=== PATIENT | male | born 1975 | race African-American/Black ===

== ENCOUNTER 2018-07-02 13:28 | Inpatient (IN) | payer MEDICAID, OTHER ==
[~2018-07-02] VITALS: Ht 180.3 cm; Wt 224.1 kg
[2018-07-02] MEDS ORDERED: methylPREDNISolone SOD SUCC 125 MG/2 ML VL IV ONE (14:15)
[2018-07-02] MEDS ORDERED: ASPirin 81 mg TAB PO ONE (14:15)
[2018-07-02 14:50] LABS: Basophils # (auto) 0.1 uL; Eosinophils # (auto) 0.3 uL; Monocytes # (auto) 0.9 uL
[2018-07-02 14:52] LABS: Basophils % (auto) 0.6 % (0.0-2.0); Eosinophils % (auto) 2.1 % (0.0-7.0); Hematocrit 39.9 % (41.0-53.0); Hemoglobin 12.9 g/dL (13.5-17.5); Lymphocytes # (auto) 2.5 uL; Mean Corpuscular Hemoglobin 26.1 pg (28.0-32.0); Mean Corpuscular Hgb Conc. 32.2 g/dL (32.0-36.0); Monocytes % (auto) 6.4 % (0.0-12.0); Neutrophils # (auto) 10.1 uL; Neutrophils % (auto) 72.9 % (37.0-80.0); Platelet Count (auto) 245 10^3/uL (140-450); Red Blood Cells 4.93 10^6/uL (4.5-5.90); White Blood Cell 13.8 10^3/uL (4.4-10.8)
[2018-07-02 15:16] LABS: Alanine Aminotransferase 19 U/L (16-61); Albumin 3.5 g/dL (3.4-5.0); Alkaline Phosphatase 107 U/L (45-117); Anion Gap 6 (5-15); Aspartate Aminotransferase 11 U/L (15-37); BUN/Creatinine Ratio 10.9; Bilirubin, Total 0.4 mg/dL (0.2-1.0); Blood Urea Nitrogen 10 mg/dL (7-18); Calcium 8.1 mg/dL (8.5-10.1); Carbon Dioxide 29 mmol/L (21-32); Chloride 106 mmol/L (98-107); GFR African American 115 mL/min; GFR Non-African American 95 mL/min; Glucose 86 mg/dL (74-106); Magnesium 2.5 mg/dL (1.6-2.6); Potassium 3.8 mmol/L (3.5-5.1); Sodium 141 mmol/L (136-145); Total Protein 8.2 g/dL (6.4-8.2)
[2018-07-02] MEDS ORDERED: FUROSEMIDE 40 MG/4 ML VIAL IV ONE (15:45)
[2018-07-02] MEDS: ENALAPRIL MALEATE 2.5 MG TAB PO SCH (16:25)
[2018-07-02] MEDS ORDERED: TEMAZEPAM 15 MG CAP PO PRN (16:30)
[2018-07-02] MEDS ORDERED: ALBUTEROL SULF 2.5 MG/0.5ML(0.5%) NEB SOLN NEB PRN (16:30)
[2018-07-02] MEDS ORDERED: LACTULOSE 20Gm/30ML SOLN PO PRN (16:30)
[2018-07-02] MEDS ORDERED: PROMETHAZINE HCL 25 MG/ML 1ML IV PRN (16:30)
[2018-07-02] MEDS ORDERED: MORPHINE SULF INJ 2 MG/ML SYRINGE 1ML IV PRN (16:30)
[2018-07-02] MEDS ORDERED: LORazepam 0.5 MG TAB PO PRN (16:30)
[2018-07-02] MEDS ORDERED: ACETAMINOPHEN 500 MG TAB PO PRN (16:30)
[2018-07-02] MEDS ORDERED: NITROGLYCERIN 0.4 MG SL TAB SL PRN (16:30)
[2018-07-02] MEDS: CARVEDILOL 3.125 MG TAB PO SCH ×2 (17:20→22:26)
[2018-07-02] MEDS: NITROGLYCERIN 0.2MG/HR TOPICAL PATCH TD SCH (17:24)
[2018-07-02] MEDS: ENOXAPARIN SOD 40 MG/0.4 ML SYRINGE SC SCH (17:25)
[2018-07-02] MEDS ORDERED: FURO40TA PO (17:40)
[2018-07-02] MEDS ORDERED: HYDR-531 PO (17:40)
[2018-07-02] MEDS ORDERED: CARI-277 PO (17:40)
[2018-07-02 17:55] LABS: Urine Bacteria NONE SEEN /hpf (None Seen); Urine Blood Negative /uL (Negative); Urine Mucus FEW (None Seen); Urine WBC 1 /hpf (0 - 3)
[2018-07-02] MEDS: MORPHINE SULF INJ 2 MG/ML SYRINGE 1ML IV PRN (18:25)
[2018-07-02] MEDS: DOXYCYCLINE 100MG/250ML 250 ML IV SCH (18:25)
[2018-07-02] MEDS: IPRATROPIUM BROM 0.5 MG/2.5ML INH SOL NEB SCH (19:32)
[2018-07-02] MEDS: ALBUTEROL SULF 2.5 MG/0.5ML(0.5%) NEB SOLN NEB SCH (19:32)
[2018-07-02 22:00] VITALS: BP 149/77
[2018-07-02] MEDS: ATORVASTATIN 20 MG TAB PO SCH (22:30)
[2018-07-02 23:00] VITALS: BP 149/77
[2018-07-03] VITALS (7 sets, daily range): BP systolic 120–160; BP diastolic 64–93
[2018-07-03] MEDS: IPRATROPIUM BROM 0.5 MG/2.5ML INH SOL NEB SCH ×5 (01:44→23:19)
[2018-07-03] MEDS: ALBUTEROL SULF 2.5 MG/0.5ML(0.5%) NEB SOLN NEB SCH ×5 (01:44→23:19)
[2018-07-03] MEDS: DOXYCYCLINE 100MG/250ML 250 ML IV SCH ×2 (04:37→16:44)
[2018-07-03 05:36] LABS: Basophils # (auto) 0 uL; Basophils % (auto) 0.1 % (0.0-2.0); Eosinophils # (auto) 0 uL; Lymphocytes # (auto) 1.1 uL; Monocytes # (auto) 0.4 uL; Monocytes % (auto) 2.7 % (0.0-12.0)
[2018-07-03 05:38] LABS: Hematocrit 41.6 % (41.0-53.0); Hemoglobin 13.4 g/dL (13.5-17.5); Lymphocytes % (auto) 7.7 % (10.0-50.0); Mean Corpuscular Hgb Conc. 32.3 g/dL (32.0-36.0); Mean Corpuscular Volume 80.8 fL (80.0-100.0); Neutrophils # (auto) 12.7 uL; Neutrophils % (auto) 89.5 % (37.0-80.0); Nucleated Red Blood Cells % 0.1 %; Platelet Count (auto) 268 10^3/uL (140-450); Red Blood Cells 5.15 10^6/uL (4.5-5.90); Red Cell Distribution Width 16.9 % (11.8-14.3); White Blood Cell 14.2 10^3/uL (4.4-10.8)
[2018-07-03 05:59] LABS: Albumin 3.6 g/dL (3.4-5.0); BUN/Creatinine Ratio 14.3; Bilirubin, Total 0.3 mg/dL (0.2-1.0); Calcium 8.8 mg/dL (8.5-10.1); Potassium 4.3 mmol/L (3.5-5.1); Total Protein 8.7 g/dL (6.4-8.2)
[2018-07-03] MEDS: POTASSIUM CHL 20 Meq TABLET PO SCH (09:43)
[2018-07-03] MEDS: PANTOPRAZOLE 40 MG TAB PO SCH (09:43)
[2018-07-03] MEDS: CARVEDILOL 3.125 MG TAB PO SCH ×2 (09:44→22:13)
[2018-07-03] MEDS: ENALAPRIL MALEATE 2.5 MG TAB PO SCH (09:45)
[2018-07-03] MEDS: ASPirin 81 mg TAB PO SCH (09:45)
[2018-07-03] MEDS: FUROSEMIDE 40 MG/4 ML VIAL IV SCH (09:45)
[2018-07-03] MEDS: NITROGLYCERIN 0.2MG/HR TOPICAL PATCH TD SCH (09:46)
[2018-07-03] MEDS: ENOXAPARIN SOD 40 MG/0.4 ML SYRINGE SC SCH (09:46)
[2018-07-03] MEDS: HYDROcodone-ACET 5/325MG TAB PO PRN (09:57)
[2018-07-03] MEDS ORDERED: ENOXAPARIN SOD 40 MG/0.4 ML SYRINGE SC SCH (10:00)
[2018-07-03] MEDS: THROAT LOZENGES(CEPASTAT) MT PRN (16:44)
[2018-07-03] MEDS: ATORVASTATIN 20 MG TAB PO SCH (22:13)
[2018-07-04] MEDS: DOXYCYCLINE 100MG/250ML 250 ML IV SCH ×2 (04:38→16:28)
[2018-07-04] MEDS: HYDROcodone-ACET 5/325MG TAB PO PRN ×2 (04:43→13:42)
[2018-07-04 05:00] VITALS: BP 133/86
[2018-07-04] MEDS: IPRATROPIUM BROM 0.5 MG/2.5ML INH SOL NEB SCH ×3 (07:38→20:00)
[2018-07-04] MEDS: ALBUTEROL SULF 2.5 MG/0.5ML(0.5%) NEB SOLN NEB SCH ×3 (07:38→20:00)
[2018-07-04 09:15] VITALS: BP 122/82
[2018-07-04] MEDS: NITROGLYCERIN 0.2MG/HR TOPICAL PATCH TD SCH (10:00)
[2018-07-04] MEDS: ENALAPRIL MALEATE 2.5 MG TAB PO SCH (10:45)
[2018-07-04] MEDS: ASPirin 81 mg TAB PO SCH (10:46)
[2018-07-04] MEDS: PANTOPRAZOLE 40 MG TAB PO SCH (10:47)
[2018-07-04] MEDS: POTASSIUM CHL 20 Meq TABLET PO SCH (10:47)
[2018-07-04] MEDS: CARVEDILOL 3.125 MG TAB PO SCH ×2 (10:48→21:34)
[2018-07-04] MEDS: ENOXAPARIN SOD 40 MG/0.4 ML SYRINGE SC SCH (10:48)
[2018-07-04] MEDS: FUROSEMIDE 40 MG/4 ML VIAL IV SCH (10:49)
[2018-07-04] MEDS: THROAT LOZENGES(CEPASTAT) MT PRN (10:53)
[2018-07-04 12:35] VITALS: BP 149/73
[2018-07-04 15:55] LABS: Magnesium 2.2 mg/dL (1.6-2.6); Potassium 3.8 mmol/L (3.5-5.1)
[2018-07-04 16:19] VITALS: BP 107/50
[2018-07-04 16:30] LABS: Basophils # (auto) 0 uL; Basophils % (auto) 0.5 % (0.0-2.0); Eosinophils # (auto) 0.3 uL; Eosinophils % (auto) 2.9 % (0.0-7.0); Hematocrit 39.8 % (41.0-53.0); Hemoglobin 12.9 g/dL (13.5-17.5); Lymphocytes # (auto) 2.1 uL; Mean Corpuscular Hemoglobin 26.2 pg (28.0-32.0); Mean Corpuscular Hgb Conc. 32.4 g/dL (32.0-36.0); Mean Corpuscular Volume 80.9 fL (80.0-100.0); Monocytes # (auto) 1.1 uL; Monocytes % (auto) 10.5 % (0.0-12.0); Neutrophils # (auto) 6.5 uL; Neutrophils % (auto) 65.1 % (37.0-80.0); Nucleated Red Blood Cells % 0.1 %; Platelet Count (auto) 220 10^3/uL (140-450); Red Blood Cells 4.91 10^6/uL (4.5-5.90)
[2018-07-04] MEDS: MORPHINE SULF INJ 2 MG/ML SYRINGE 1ML IV PRN (20:23)
[2018-07-04] MEDS: ATORVASTATIN 20 MG TAB PO SCH (21:34)
[2018-07-04 21:45] VITALS: BP 113/59
[2018-07-04] MEDS ORDERED: FUROSEMIDE 40 MG/4 ML VIAL IV ONE (23:30)
[2018-07-05] MEDS: ALBUTEROL SULF 2.5 MG/0.5ML(0.5%) NEB SOLN NEB SCH ×2 (00:48→07:03)
[2018-07-05] MEDS: IPRATROPIUM BROM 0.5 MG/2.5ML INH SOL NEB SCH ×2 (00:48→07:03)
[2018-07-05] MEDS: DOXYCYCLINE 100MG/250ML 250 ML IV SCH (04:12)
[2018-07-05 05:49] VITALS: BP 122/76
[2018-07-05] MEDS ORDERED: FUROSEMIDE 40 MG/4 ML VIAL IV SCH (10:00)
== END 2018-07-05 09:30 | disposition left against medical advice (07) | DRG 194 ==
LOC: ER 13:28 → TELE 13:29 → TELE-EAST 18:16
PROVIDERS: ADMIT Internal Medicine; ATTEND Internal Medicine
PROC: 5A09357 Assistance with Respiratory Ventilation, Less than 24 Consecutive Hours, Continuous Positive Airway Pressure (ICD-10-PCS; principal; 2018-07-02)
PROC: 5A09357 Assistance with Respiratory Ventilation, Less than 24 Consecutive Hours, Continuous Positive Airway Pressure (ICD-10-PCS; 2018-07-03)
PROC: 5A09357 Assistance with Respiratory Ventilation, Less than 24 Consecutive Hours, Continuous Positive Airway Pressure (ICD-10-PCS; 2018-07-05)
DX: I11.0 Hypertensive heart disease with heart failure (principal); E66.01 Morbid (severe) obesity due to excess calories; J44.1 Chronic obstructive pulmonary disease with (acute) exacerbation; E11.9 Type 2 diabetes mellitus without complications; D72.829 Elevated white blood cell count, unspecified; Z79.899 Other long term (current) drug therapy; I50.33 Acute on chronic diastolic (congestive) heart failure; I50.82 Biventricular heart failure; Z82.49 Family history of ischemic heart disease and other diseases of the circulatory system; Z68.44 Body mass index [BMI] 60.0-69.9, adult
CPT/HCPCS: 36415; 71045; 80053; 80061; 81001; 82550; 83735; 83880; 84132; 84443; 84484; 85025; 85379; 85652; 86141; 87070; 87205; 93005; 93306; 93970; 94640; 94660; 94761; 96372; 96374; 96375; J3490

== ENCOUNTER 2018-07-29 11:32 | Emergency (ER) | payer MEDICAID ==
[~2018-07-29] VITALS: Ht 180.3 cm; Wt 222.3 kg
[~2018-07-29 11:32] MED LIST: CARI-277 PO; FURO40TA PO; HYDR-531 PO
[2018-07-29 11:43] VITALS: BP 155/78
== END 2018-07-29 12:25 | disposition home or self-care (01) ==
LOC: ER 11:36
DX: S83.8X1A Sprain of other specified parts of right knee, initial encounter (principal); J44.9 Chronic obstructive pulmonary disease, unspecified; E11.9 Type 2 diabetes mellitus without complications; I11.0 Hypertensive heart disease with heart failure; I50.9 Heart failure, unspecified; W01.0XXA Fall on same level from slipping, tripping and stumbling without subsequent striking against object, initial encounter; Y93.01 Activity, walking, marching and hiking; Y99.8 Other external cause status; Y92.511 Restaurant or cafe as the place of occurrence of the external cause
CPT/HCPCS: 73562

== ENCOUNTER 2018-11-16 21:38 | Emergency (ER) | payer MEDICAID ==
[~2018-11-16] VITALS: Ht 180.3 cm; Wt 217.7 kg
[2018-11-16 22:12] VITALS: BP 159/91
[2018-11-16] MEDS ORDERED: KETOROLAC TROMETH 60MG/2ML VIAL IM ONE (22:45)
[2018-11-16] MEDS ORDERED: methylPREDNISolone SOD SUCC 125 MG/2 ML VL IM ONE (22:45)
== END 2018-11-16 23:17 | disposition home or self-care (01) ==
LOC: ER 21:38
DX: M25.562 Pain in left knee (principal); J44.9 Chronic obstructive pulmonary disease, unspecified; I11.0 Hypertensive heart disease with heart failure; I50.9 Heart failure, unspecified; E11.9 Type 2 diabetes mellitus without complications; Z79.899 Other long term (current) drug therapy
CPT/HCPCS: 96372; 99283; J1885; J2930

== ENCOUNTER 2025-09-02 06:08 | Inpatient (IN) | payer MEDICAID ==
[2025-09-02] VITALS (8 sets, daily range): BP systolic 157–171; BP diastolic 82–96; PULSE 84–103; RESP 18–24; TEMP 97.9–98; O2SAT 92–98
[~2025-09-02] VITALS: Ht 182.9 cm; Wt 245.0 kg
[~2025-09-02 06:08] MED LIST changes: +FURO1TAB31 PO; -FURO40TA PO
--- NOTE | 2025-09-02 08:06 | ED.PDOC ---
SOB-HPI HPI Comments 50 y.o male with PMHx of CHF, HTN and osteoarthritis, presents to the ED for a chief complaint of SOB that started this morning. Patient mentions running out of his Lasix 2 days ago and presents with lower extremity swelling. Upon arrival, blood pressure read 206/102 with a repeat of 184/104 and has a SPO2 of 97% on room air. He denies any chest pain, chills, fever, nausea, vomiting, or pain. Chief Complaint: Shortness of Breath Time Seen by MD: 07:33 Primary Care Provider: GERARDO CHAMBERS Reviewed notes: Nurses Notes, Medications, Allergies Information Source: Patient Mode of Arrival: Ambulatory Severity: Moderate Timing: Hours Duration: Since onset Context: At Rest PE Risk Factors: None History of: CHF Associated Signs and Symptoms: None Past Medical History PAST MEDICAL HISTORY: CHF, COPD, DM, HTN Surgical History: Denies all surgeries Family History Family History: Unknown Social History Smoker: Non-Smoker Alcohol: Occasionally Drugs: Denies Drug Use Lives In: Home Constitutional: denies: chills, diaphoresis, fatigue, fever, malaise, sweats, weakness, others EENTM: denies: blurred vision, double vision, ear bleeding, ear discharge, ear drainage, ear pain, ear ringing, eye pain, eye redness, hearing loss, mouth pain, mouth swelling, nasal discharge, nose bleeding, nose congestion, nose pain, photophobia, tearing, throat pain, throat swelling, voice changes, others Respiratory: reports: SOB at rest, shortness of breath, SOB with excertion; denies: cough, hemoptysis, orthopnea, stridor, wheezing, others Cardiovascular: denies: chest pain, dizzy spells, diaphoresis, Dyspnea on exertion, edema, irregular heart beat, left arm pain, lightheadedness, palpitations, PND, syncope, others Gastrointestinal: denies: abdomen distended, abdominal pain, blood streaked bowels, constipated, diarrhea, dysphagia, difficulty swallowing, hematemesis, melena, nausea, poor appetite, poor fluid intake, rectal bleeding, rectal pain, vomiting, others Genitourinary: denies: burning, dysuria, flank pain, frequency, hematuria, incontinence, penile discharge, penile sore, pain, testicle pain, testicle swelling, urgency, others Neurological: denies: dizziness, fainting, headache, left sided numbness, left sided weakness, numbness, paresthesia, pre-existing deficit, right sided numbness, right sided weakness, seizure, speech problems, tingling, tremors, weakness, others Musculoskeletal: denies: back pain, gout, joint pain, joint swelling, muscle pain, muscle stiffness, neck pain, others Integumetry: denies: bruises, change in color, change in hair/nails, dryness, laceration, lesions, lumps, rash, wounds, others Allergic/Immunocompromised: denies: Difficulty Healing, Frequent Infections, Hives, Itching, others Hematologic/Lymphatic: denies: anemia, blood clots, easy bleeding, easy bruising, swollen glands, others Endocrine: denies: excessive hunger, excessive sweating, excessive thirst, excessive urination, flushing, intolerance to cold, intolerance to heat, u nexplained weight gain, unexplained weight loss, others Psychiatric: denies: anxiety, bipolar disorder, depression, hopeless, panic disorder, schizophrenia, sleepless, suicidal, others All Other Systems: Reviewed and Negative Physical Exam General Appearance: Moderate Distress, Obese HEENT: Normal ENT Inspection, Pharynx Normal, TMs Normal Neck: Full Range of Motion, Non-Tender, Normal, Normal Inspection Respiratory: Chest Non-Tender, Lungs Clear, No Accessory Muscle Use, No Respiratory Distress, Normal Breath Sounds Cardiovascular: No Edema, No JVD, No Murmur, No Gallop, Normal Peripheral Pulse s, Regular Rate/Rhythm Breast Exam: Deferred Gastrointestinal: No Organomegaly, Non Tender, No Pulsatile Mass, Normal Bowel Sounds, Soft Genitalia: Deferred Pelvic: Deferred Rectal: Deferred Extremities: Swelling (Bilateral lower extremity) Musculoskeletal : Apperance: Normal Neurologic: Alert, No Motor Deficits, No Sensory Deficits Cerebellar Function: NOT DONE Reflexes: NOT DONE Skin: Normal Color Peripheral Pulses: 3+ Radial (R), 3+ Radial (L) Lymphatic: No Adenopathy Was a procedure done? Was a procedure done?: No Differential Dx Differential Diagnosis: Anxiety, Asthma, CHF, COPD, Pneumonia, Respiratory Distress, URI X-Ray, Labs, Meds, VS Vital Signs Date Time Temp Pulse Resp B/P (MAP) Pulse Ox O2 Delivery O2 Flow Rate FiO2 09/02/25 08:55 167/82 09/02/25 08:48 20 93 Room Air* 0 21 09/02/25 08:47 98.0 84 22 167/82 (110) 100 98.0 09/02/25 08:47 84 22 98 Room Air* 0 21 09/02/25 06:09 98.0 98 22 184/104 97 98.0 Lab Test 09/02/25 09:14 09/02/25 08:30 09/02/25 08:15 Range/Units Troponin I High Sensitivity 17 16 </=54 ng/L Urine Color Light-yellow Yellow Urine Clarity Clear Clear Urine pH 5.5 5.0-9.0 Urine Specific Gerry 1.003 1.001-1.035 Urine Protein Negative Negative Urine Ketones Negative Negative Urine Blood Negative Negative /uL Urine Nitrite Negative Negative Urine Bilirubin Negative Negative Urine Urobilinogen Normal Negative mg/dL Urine Leukocyte Esterase Negative Negative /uL Urine RBC None seen 0 - 3 /hpf Urine Microscopic WBC 1 0-3 /HPF Urine Squamous Epithelial Cells None seen <5 /hpf Urine Bacteria None seen None Seen /hpf Urine Glucose Normal Normal mg/dL White Blood Count 12.1 H 4.4-10.8 10^3/uL Red Blood Count 5.09 4.5-5.90 10^6/uL Hemoglobin 13.2 L 13.5-17.5 g/dL Hematocrit 41.0 41.0-53.0 % Mean Corpuscular Volume 80.5 80.0-100.0 fL Mean Corpuscular Hemoglobin 26.0 L 28.0-32.0 pg Mean Corpuscular Hemoglobin Concent 32.3 32.0-36.0 g/dL Red Cell Distribution Width 17.2 H 11.8-14.3 % Platelet Count 200 140-450 10^3/uL Mean Platelet Volume 10.2 6.9-10.8 fL Neutrophils (%) (Auto) 75.3 37.0-80.0 % Lymphocytes (%) (Auto) 14.0 10.0-50.0 % Monocytes (%) (Auto) 7.5 0.0-12.0 % Eosinophils (%) (Auto) 2.6 0.0-7.0 % Basophils (%) (Auto) 0.6 0.0-2.0 % Neutrophils # (Auto) 9.1 H 1.6-8.6 10 ^3/uL Lymphocytes # (Auto) 1.7 0.4-5.4 10 ^3/uL Monocytes # (Auto) 0.9 0-1.3 10 ^3/uL Eosinophils # (Auto) 0.3 0-0.8 10 ^3/uL Basophils # (Auto) 0.1 0-0.2 10 ^3/uL Nucleated Red Blood Cells 0.0 % Sodium Level 145 136-145 mmol/L Potassium Level 4.4 3.5-5.1 mmol/L Chloride Level 108 H 98-107 mmol/L Carbon Dioxide Level 29 20-31 mmol/L Anion Gap 8 5-15 Blood Urea Nitrogen 16 9-23 mg/dL Creatinine 1.22 0.700-1.30 mg/dL Glomerular Filtration Rate Calc 72 >90 mL/min BUN/Creatinine Ratio 13.1 10.0-20.0 Serum Glucose 153 H 74-106 mg/dL Calcium Level 8.7 8.7-10.4 mg/dL B-Type Natriuretic Peptide 30.71 0-100 pg/mL Current Medications Medications (Trade) Dose Ordered Sig/Isela Route Start Time Stop Time Status Last Admin Albuterol (Ventolin Medneb) 5 mg ONCE ONCE NEB 09/02/25 08:30 09/02/25 08:31 DC 09/02/25 08:46 Ipratropium [place] (Atrovent Medneb) 0.5 mg ONCE ONCE NEB 09/02/25 08:30 09/02/25 08:31 DC 09/02/25 08:46 Furosemide (Lasix Injection) 40 mg ONCE ONCE IV 09/02/25 08:30 09/02/25 08:31 DC 09/02/25 08:55 Methylprednisolone Sodium Succinate (Solu Medrol) 125 mg ONCE ONCE IV 09/02/25 09:15 09/02/25 09:16 DC 09/02/25 09:30 Piperacillin Sod/ Tazobactam Sod 100 ml @ 100 mls/hr ONCE ONCE IV 09/02/25 09:15 09/02/25 10:14 DC 09/02/25 09:30 Azithromycin 250 ml @ 125 mls/hr ONCE ONCE IV 09/02/25 09:15 09/02/25 11:14 09/02/25 09:[address] [address] Ph: [phone] DIAGNOSTIC IMAGING Diagnostic Imaging Report : [id number] Signed PATIENT: GAETANO MELGAR ACCT: [id number] UNIT: [id number] : 1975 LOC: ER ROOM / BED: / AGE / SEX: 50 / M ADM STATUS: REG ER SERVICE [id number] ORDERING PHYSICIAN: NEREYDA PAYNE MD PROCEDURE(s): CXRP - CHEST PORTABLE REASON: sob ORDER NUMBER(s): [id number], ACCESSION NUMBER(s): [id number] CHEST RADIOGRAPH Indication: sob Technique: Single frontal view of the chest was obtained COMPARISON: None FINDINGS: Lines and Tubes: None Lungs: Increased interstitial prominence. This may represent pulmonary vascular congestion and/or viral pneumonia. Pleura: No effusion.No pneumothorax. Cardiomediastinal contours: Cardiomegaly. Bones: Unremarkable IMPRESSION: Increased interstitial prominence. This may represent pulmonary vascular congestion and/or viral pneumonia. ATED BY: LALIT GOLD MD DICTATED DATE/TIME: 09/02/25848 SIGNED BY: LALIT GOLD MD SIGNED DATE/TIME: 09/02/25848 CC: Patient alert. He is short of breath. He is obese. Cardiac marker within normal limits. BNP within normal limits. Was given breathing treatment. Blood sugar elevated. Chest x-ray does show fluid. Was given Lasix. WBC elevated. Possible pneumonitis. Explained to the patient. Continue monitoring. Time of 1ST Reevaluation: 08:06 Reevaluation 1ST: Unchanged Patient Education/Counseling: Diagnosis, Treatment, Prognosis Family Education/Counseling: No Family Present SEPSIS Sepsis Screen Date sepsis recognized/suspect: Sep 02, 2025 Time Sepsis recognized/suspect: 06 Recent Procedure: No On Antibiotic Therapy: No Respiratory Rate >20: No Heart Rate >90: No Temp<36 C (96.8 F) or >38.3 C: No SBP <90 or MAP <65 mmHG: No New Acute Mental Status Change: No Is the patient on CPAP, BIPAP,: No Physician Orders Chest Portable (09/02/25 07:56) Troponin-I Hs (09/02/25 10:56) Azithromycin 500mg/ 250ml (Zithromax 50 (09/02/25 09:15) Vital Signs Date Time Temp Pulse Resp B/P (MAP) Pulse Ox O2 Delivery O2 Flow Rate FiO2 09/02/25 08:55 167/82 09/02/25 08:48 20 93 Room Air* 0 21 09/02/25 08:47 98.0 84 22 167/82 (110) 100 98.0 09/02/25 08:47 84 22 98 Room Air* 0 21 09/02/25 06:09 98.0 98 22 184/104 97 98.0 Laboratory Tests Test 09/02/25 08:15 White Blood Count 12.1 10^3/uL (4.4-10.8) H Medications Medications Dose Ordered Sig/Isela Route Start Time Stop Time Status Last Admin Dose Admin Albuterol 5 mg ONCE ONCE NEB 09/02/25 08:30 09/02/25 08:31 DC 09/02/25 08:46 Azithromycin 250 ml @ 125 mls/hr ONCE ONCE IV 09/02/25 09:15 09/02/25 11:14 09/02/25 09:30 Furosemide 40 mg ONCE ONCE IV 09/02/25 08:30 09/02/25 08:31 DC 09/02/25 08:55 Ipratropium [place] 0.5 mg ONCE ONCE NEB 09/02/25 08:30 09/02/25 08:31 DC 09/02/25 08:46 Methylprednisolone Sodium Succinate 125 mg ONCE ONCE IV 09/02/25 09:15 09/02/25 09:16 DC 09/02/25 09:30 Piperacillin Sod/ Tazobactam Sod 100 ml @ 100 mls/hr ONCE ONCE IV 09/02/25 09:15 09/02/25 10:14 DC 09/02/25 09:30 Departure 1 Departure Time of Disposition: 09:10 Impression: Primary Impression: CHF (congestive heart failure) Qualified Codes: I50.43 - Acute on chronic combined systolic (congestive) and diastolic (congestive) heart failure Disposition: ADMITTED INPATIENT Admit to: Med Surg Condition: Guarded Critical Care Note Critical Care Time?: Yes (90 min-critical care time only) Stability Stability form required: No I personally scribed for NEREYDA PAYNE MD ([email or web address]) on 09/02/25 at 08:06. Electronically submitted by Yoly Joseph ([email or web address]). I personally scribed for NEREYDA PAYNE MD ([email or web address]) on 09/02/25 at 10:30. Electronically submitted by Jaun Meredith ([email or web address]). NEREYDA PAYNE MD Sep 02, 2025 08:06
[2025-09-02 08:31] LABS: Hemoglobin 13.2 g/dL (13.5-17.5); Nucleated Red Blood Cells % 0.0 %
[2025-09-02 08:33] LABS: Hematocrit 41.0 % (41.0-53.0); Mean Corpuscular Hemoglobin 26.0 pg (28.0-32.0); Mean Corpuscular Volume 80.5 fL (80.0-100.0)
[2025-09-02 08:38] LABS: Urine Protein, UAD Negative (Negative)
[2025-09-02 08:42] LABS: Potassium 4.4 mmol/L (3.5-5.1)
[2025-09-02 08:43] LABS: Anion Gap 8 (5-15); Carbon Dioxide 29 mmol/L (20-31)
[2025-09-02 08:44] LABS: Calcium 8.7 mg/dL (8.7-10.4); Chloride 108 mmol/L (98-107); Sodium 145 mmol/L (136-145)
[2025-09-02] MEDS: ALBUTEROL SULF 2.5 MG/0.5ML(0.5%) NEB SOLN NEB ONE (08:46)
[2025-09-02] MEDS: IPRATROPIUM BROM 0.5 MG/2.5ML INH SOL NEB ONE (08:46)
[2025-09-02 08:49] LABS: BUN/Creatinine Ratio 13.1 (10.0-20.0); Blood Urea Nitrogen 16 mg/dL (9-23)
--- NOTE | 2025-09-02 08:52 | DVH ---
CHEST RADIOGRAPH Indication: sob Technique: Single frontal view of the chest was obtained COMPARISON: None FINDINGS: Lines and Tubes: None Lungs: Increased interstitial prominence. This may represent pulmonary vascular congestion and/or vir al pneumonia. Pleura: No effusion.No pneumothorax. Cardiomediastinal contours: Cardiomegaly. Bones: Unremarkable IMPRESSION: Increased interstitial prominence. This may represent pulmonary vascular congestion and/or viral pneumonia.
[2025-09-02 08:53] LABS: Glucose 153 mg/dL (74-106)
[2025-09-02] MEDS: FUROSEMIDE 40 MG/4 ML VIAL IV ONE (08:55)
[2025-09-02] MEDS: PIPERACILLIN-TAZOB 3.375GM 100 ML IV ONE (09:30)
[2025-09-02] MEDS: methylPREDNISolone SOD SUCC 125 MG/2 ML VL IV ONE (09:30)
[2025-09-02] MEDS: AZITHROMYCIN 500MG/ 250ML 250 ML IV ONE (09:30)
--- NOTE | 2025-09-02 10:40 | DVHHPRES ---
History of Present Illness Resident Creating Document: MAHENDRA JEAN RESIDENT History of Present Illness 50 y.o male with PMHx of CHF, HTN and osteoarthritis, presents to the ED for a chief complaint of SOB that started this morning. Patient mentions running out of his Lasix 2 days ago and presents with lower extremity swelling. The patient's 4 months ago from a stroke, and he reports going through a lot emotionally because of this loss. He mentions starting a job about a week ago but moved out again. He currently lives alone and does not have a sighter. Regarding other medical conditions, the patient has hypertension and arthritis affecting his knees and back. He takes Hancock for pain management. The patient reports medication non-adherence, having run out of his heart failure medication yesterday, which he attributes to his current symptom exacerbation. Past Medical History - Heart failure for over 10 years - Hypertension - Arthritis affecting hands and knees Past Social History - Substance Use: Former smoker, quit recently but smoked yesterday; previously smoked 4-5 cigarettes per day; occasional marijuana use, smoked yesterday. Patient reports she was using methamphetamine before but quit last week. - Occupation: Not currently working; started a job about a week ago but moved out again - Living Situation: Lives alone; Review of Systems Review of Systems CONSTITUTIONAL: Denies weight loss, fever and chills. HEENT: Denies changes in vision and hearing. RESPIRATORY: Report shortness of breathe Cardiovascular: Positive for leg swelling. GI: Denies abdominal pain, nausea, vomiting and diarrhea. : Denies dysuria and urinary frequency. Musculoskeletal: Positive for arthritis in hands and knees. SKIN: Denies rash and pruritus. NEUROLOGICAL: Denies headache Allergies: Coded Allergies: NO KNOWN ALLERGIES (Unverified , 07/02/18) Medications Current Medications Medications Dose Ordered Sig/Isela Route Start Time Stop Time Status Last Admin Dose Admin Sodium Chloride 10 ml Q8HR IV 09/02/25 14:00 UNV Exam Vital Signs Vital Signs Date Time Temp Pulse Resp B/P (MAP) Pulse Ox O2 Delivery O2 Flow Rate FiO2 09/02/25 08:55 167/82 09/02/25 08:48 20 93 Room Air* 0 21 09/02/25 08:47 98.0 84 98.0 Exam GENERAL: Not in acute distress. HEENT: EOMI, Moist mucous membranes. No scleral icterus. No cervical lymphadenopathy. LUNGS: Clear to auscultation bilaterally. No accessory muscle use. CARDIOVASCULAR: Regular rate and rhythm. No murmur. ABDOMEN: Soft, nontender and nondistended. No palpable masses. EXTREMITIES: Edema positive SKIN: No rashes or lesions. Warm. NEUROLOGIC: Alert and oriented X3 Labs/Xrays Labs Test 09/02/25 09:14 09/02/25 08:30 09/02/25 08:15 Range/Units Troponin I High Sensitivity 17 </=54 ng/L Urine Color Light-yellow Yellow Urine Clarity Clear Clear Urine pH 5.5 5.0-9.0 Urine Specific [place] 1.003 1.001-1.035 Urine Protein Negative Negative Urine Ketones Negative Negative Urine Blood Negative Negative /uL Urine Nitrite Negative Negative Urine Bilirubin Negative Negative Urine Urobilinogen Normal Negative mg/dL Urine Leukocyte Esterase Negative Negative /uL Urine RBC None seen 0 - 3 /hpf Urine Microscopic WBC 1 0-3 /HPF Urine Squamous Epithelial Cells None seen <5 /hpf Urine Bacteria None seen None Seen /hpf Urine Glucose Normal Normal mg/dL White Blood Count 12.1 H 4.4-10.8 10^3/uL Red Blood Count 5.09 4.5-5.90 10^6/uL Hemoglobin 13.2 L 13.5-17.5 g/dL Hematocrit 41.0 41.0-53.0 % Mean Corpuscular Volume 80.5 80.0-100.0 fL Mean Corpuscular Hemoglobin 26.0 L 28.0-32.0 pg Mean Corpuscular Hemoglobin Concent 32.3 32.0-36.0 g/dL Red Cell Distribution Width 17.2 H 11.8-14.3 % Platelet Count 200 140-450 10^3/uL Mean Platelet Volume 10.2 6.9-10.8 fL Neutrophils (%) (Auto) 75.3 37.0-80.0 % Lymphocytes (%) (Auto) 14.0 10.0-50.0 % Monocytes (%) (Auto) 7.5 0.0-12.0 % Eosinophils (%) (Auto) 2.6 0.0-7.0 % Basophils (%) (Auto) 0.6 0.0-2.0 % Neutrophils # (Auto) 9.1 H 1.6-8.6 10 ^3/uL Lymphocytes # (Auto) 1.7 0.4-5.4 10 ^3/uL Monocytes # (Auto) 0.9 0-1.3 10 ^3/uL Eosinophils # (Auto) 0.3 0-0.8 10 ^3/uL Basophils # (Auto) 0.1 0-0.2 10 ^3/uL Nucleated Red Blood Cells 0.0 % Sodium Level 145 136-145 mmol/L Potassium Level 4.4 3.5-5.1 mmol/L Chloride Level 108 H 98-107 mmol/L Carbon Dioxide Level 29 20-31 mmol/L Anion Gap 8 5-15 Blood Urea Nitrogen 16 9-23 mg/dL Creatinine 1.22 0.700-1.30 mg/dL Glomerular Filtration Rate Calc 72 >90 mL/min BUN/Creatinine Ratio 13.1 10.0-20.0 Serum Glucose 153 H 74-106 mg/dL Calcium Level 8.7 8.7-10.4 mg/dL B-Type Natriuretic Peptide 30.71 0-100 pg/mL SEPSIS Sepsis Screen Date sepsis recognized/suspect: Sep 02, 2025 Time Sepsis recognized/suspect: 612 Recent Procedure: No On Antibiotic Therapy: No Respiratory Rate >20: No Heart Rate >90: No Temp<36 C (96.8 F) or >38.3 C: No SBP <90 or MAP <65 mmHG: No New Acute Mental Status Change: No Is the patient on CPAP, BIPAP,: No Physician Orders Chest Portable (09/02/25 07:56) Troponin-I Hs (09/02/25 10:56) Azithromycin 500mg/ 250ml (Zithromax 50 (09/02/25 09:15) Admit (09/02/25 10:32) Code Status (09/02/25 10:32) Sodium Chloride Lock (Saline Lock Ns) (09/02/25 14:00) Hydrocodone-Acet 5/325mg Tab (Hancock (09/02/25 10:45) Enoxaparin Sodium (Lovenox) (09/03/25 10:00) Complete Blood Count (09/03/25 04:00) Comprehensive Metabolic Panel (09/03/25 04:00) Cardiac Diet-2gna,Lofat,Lochol (09/02/25 Lunch) Acetaminophen Tablet (Tylenol Tablet) (09/02/25 10:45) Nitroglycerin Sublingual (Ntrostat Subli (09/02/25 10:45) Morphine Sulfate Injection (09/02/25 10:45) Oxygen By Nasal Cannula (09/02/25 10:32) Stat Ekg For Chest Pain (09/02/25 10:32) Notify Of Changes From Base (09/02/25 10:32) Thimble Press Operator For 24 Hours (09/02/25 10:32) Emergency Dysrhythmia Protocol (09/02/25 10:32) Rhythm Strips Once Every Shift (09/02/25 10:32) Echo 2d Mode Cardiac Dop (09/02/25 10:32) Ceftriaxone Ivpb Rocephin (09/02/25 10:45) Azithromycin 500mg/ 250ml (Zithromax 50 (09/02/25 10:45) Drug Screen (09/02/25 10:38) Vital Signs Date Time Temp Pulse Resp B/P (MAP) Pulse Ox O2 Delivery O2 Flow Rate FiO2 09/02/25 08:55 167/82 09/02/25 08:48 20 93 Room Air* 0 21 09/02/25 08:47 98.0 84 22 167/82 (110) 100 98.0 09/02/25 08:47 84 22 98 Room Air* 0 21 09/02/25 06:09 98.0 98 22 184/104 97 98.0 Laboratory Tests Test 09/02/25 08:15 White Blood Count 12.1 10^3/uL (4.4-10.8) H Medications Medications Dose Ordered Sig/Isela Route Start Time Stop Time Status Last Admin Dose Admin Albuterol 5 mg ONCE ONCE NEB 09/02/25 08:30 09/02/25 08:31 DC 09/02/25 08:46 5 MG Azithromycin 250 ml @ 125 mls/hr ONCE ONCE IV 09/02/25 09:15 09/02/25 11:14 09/02/25 09:30 125 MLS/HR Furosemide 40 mg ONCE ONCE IV 09/02/25 08:30 09/02/25 08:31 DC 09/02/25 08:55 40 MG Ipratropium [place] 0.5 mg ONCE ONCE NEB 09/02/25 08:30 09/02/25 08:31 DC 09/02/25 08:46 0.5 MG Methylprednisolone Sodium Succinate 125 mg ONCE ONCE IV 09/02/25 09:15 09/02/25 09:16 DC 09/02/25 09:30 125 MG Piperacillin Sod/ Tazobactam Sod 100 ml @ 100 mls/hr ONCE ONCE IV 09/02/25 09:15 09/02/25 10:14 DC 09/02/25 09:30 100 MLS/HR Assessment/Plan Assessment/Plan # Acute on chronic congestive heart failure exacerbation # HFpEF - Admit to hospital for management of acute heart failure exacerbation - ordered echocardiogram - continue Lasix 40 mg IV daily - cardiology consult if needed # Possible Gram-positive/negative bacterial pneumonia - CXR shows: Increased interstitial prominence - Evaluate and treat early pneumonia - continue antibiotics IV Rocephin and IV azithromycin # Hypertension - monitor blood pressure - antihypertensive medication # Arthritis - Continue Hancock PRN # substance uses disorder - UDS shows positive for PCP and amphetamine - counseled patient for quit drug abuse Goal of care discussed with patient for 36 minutes: Full code Plan discussed with Dr. Chapin Plan discussed with: Patient My Orders Orders - MAHENDRA JEAN RESIDENT Procedure Category Date Status Time Admit ADMIT 09/02/25 Transmitted 10:32 Code Status CODE 09/02/25 Transmitted 10:32 Sodium Chloride Lock PHA 09/02/25 Logged (Saline Lock Ns) 14:00 Hydrocodone-Acet PHA 09/02/25 Transmitted 5/325mg Tab (Hancock 10:45 Enoxaparin Sodium PHA 09/03/25 Transmitted (Lovenox) 10:00 Complete Blood Count LAB 09/03/25 Verified 04:00 Comprehensive LAB 09/03/25 Verified Metabolic Panel 04:00 Cardiac DIET 09/02/25 Transmitted Diet-2gna,Lofat,Lochol Lunch Acetaminophen Tablet PHA 09/02/25 Transmitted (Tylenol Tablet) 10:45 Nitroglycerin PHA 09/02/25 Transmitted Sublingual (Ntrostat 10:45 Morphine Sulfate PHA 09/02/25 Transmitted Injection 10:45 Oxygen By Nasal RT 09/02/25 Transmitted Cannula 10:32 Stat Ekg For Chest AARON 09/02/25 In Process Pain 10:32 Notify Of Changes [facility] 09/02/25 In Process From Base 10:32 Thimble Press Operator For [facility]ON 09/02/25 In Process 24 Hours 10:32 Emergency Dysrhythmia [facility] 09/02/25 In Process Protocol 10:32 Rhythm Strips Once [facility] 09/02/25 In Process Every Shift 10:32 Echo 2d Mode Cardiac US 09/02/25 Logged DOP 10:32 Ceftriaxone Ivpb PHA 09/02/25 Transmitted Rocephin 10:45 Azithromycin 500mg/ PHA 09/02/25 Transmitted 250ml (Zithromax 50 10:45 Drug Screen LAB 09/02/25 Transmitted 10:38 Date of Service: Sep 02, 2025 Billing Provider: OTIS CHAPIN MD Common Visit Codes: 10582-YRJVWPT INP/OBS CARE (HIGH) Secondary Visit Codes: 51872-KJNYRIGX CARE PLAN 30 MINUTES MAHENDRA JEAN RESIDENT Sep 02, 2025 10:39
[2025-09-02] MEDS ORDERED: AZITHROMYCIN 500MG/ 250ML 250 ML IV SCH (10:45)
[2025-09-02] MEDS ORDERED: MORPHINE SULFATE INJ 2 MG/ml SYRG IV PRN (10:45)
[2025-09-02] MEDS ORDERED: ACETAMINOPHEN 325 MG TAB PO PRN (10:45)
[2025-09-02] MEDS ORDERED: NITROGLYCERIN 0.4 MG SL TAB SL PRN (10:45)
[2025-09-02 11:12] LABS: Phencyclidine Screen, Urine Pos (NEGATIVE)
[2025-09-02 11:17] LABS: Amphetamine Screen, Urine Pos (NEGATIVE); Barbiturate Scree,Urine Neg (NEGATIVE); Benzodiazephine Screen, Urine Neg (NEGATIVE); Cannabinoid Screen, Urine Neg (NEGATIVE); Cocaine Screen, Urine Neg (NEGATIVE); Opiate Scree,Urine Neg (NEGATIVE)
[2025-09-02] MEDS: guaiFENesin-DM 100/10mg/5ml SYR PO PRN (11:19)
[2025-09-02] MEDS: SODIUM CHLOR 0.9% PF (SALINE LOCK) 10ML VIAL/SYR IV SCH (11:20)
[2025-09-02] MEDS: HYDROcodone-ACET 5/325MG TAB PO PRN (12:35)
[2025-09-02] MEDS: hydrALAZINE HCL 20 MG/ML VL IV SCH (14:04)
[2025-09-02] MEDS: FUROSEMIDE 40 MG/4 ML VIAL IV SCH (16:30)
[2025-09-02] MEDS ORDERED: LISI40TA16 PO (18:34)
[2025-09-02] MEDS: ENOXAPARIN SOD 60 MG/0.6 ML SYRINGE SC SCH (21:18)
--- NOTE | 2025-09-02 22:11 | DVHSR ---
APPROVED REPORT EXAM: LIMITED Two-dimensional and M-mode echocardiogram with Doppler and color Doppler. Blood Pressure: 157/82 mmHg INDICATION CHF RISK FACTORS Obesity: Height: 6'0", Weight: 540 DIMENSIONS LVDd (3.8-5.7cm)LA (2D)4.4 (1.9-4.0cm)Aortic Root3.7 (2.0-3.7cm) LVDs (2.5-4.0cm)LA (MM) (1.9-4.0cm)Aortic Cusp Exc1.9 (1.5-2.0cm) EF (%) 55.0 (55-70%)Rt. Atrium4.9 (1.9-4.0cm)Asc. Aorta cm Mitral Valve MitralMitral Stenosis E wave1.10m/sMV Mean GR.mmHg A wave0.99m/sMV Peak GR.mmHg E/A ratio1.12D MVAcm2 DECEL [id number] 1/2 Timems Aortic Valve Aortic ValveAortic Stenosis V11.25m/Brie Mean GR.7mmHg V21.85m/Brie Peak GR.14mmHg LVOT Diameter2.1 (1.8-2.4cm)Doppler AVA2.34cm2 Pulmonic Valve V20.98m/s Other Information Quality : Technically LimitedRhythm : Technically limited study due to body habitus, patient lying flat. Conclusion MODERATELY DILATED RV AND RA MOST LIKELY CHRONIC RV STRAIN PATTERN LV EF IS 65% NORMAL VALVES NO EFFUSION
[2025-09-03] VITALS (11 sets, daily range): BP systolic 104–164; BP diastolic 65–89; PULSE 78–135; RESP 17–20; TEMP 97.3–98.9; O2SAT 93–100
[2025-09-03 06:25] LABS: Hemoglobin 12.7 g/dL (13.5-17.5); Nucleated Red Blood Cells % 0.0 %
[2025-09-03 06:27] LABS: Hematocrit 39.5 % (41.0-53.0); Mean Corpuscular Hemoglobin 25.8 pg (28.0-32.0); Mean Corpuscular Volume 80.1 fL (80.0-100.0)
[2025-09-03 06:33] LABS: Alanine Aminotransferase 18 U/L (7-40); Anion Gap 8 (5-15); Calcium 9.3 mg/dL (8.7-10.4); Carbon Dioxide 30 mmol/L (20-31); Chloride 102 mmol/L (98-107); Potassium 4.3 mmol/L (3.5-5.1); Sodium 140 mmol/L (136-145)
[2025-09-03 06:34] LABS: BUN/Creatinine Ratio 15.3 (10.0-20.0); Blood Urea Nitrogen 17 mg/dL (9-23); Total Protein 7.7 g/dL (5.7-8.2)
[2025-09-03 06:35] LABS: Albumin 4.1 g/dL (3.2-4.8); Bilirubin, Total 0.5 mg/dL (0.2-1.0)
[2025-09-03 06:36] LABS: Alkaline Phosphatase 128 U/L (46-116); Glucose 193 mg/dL (74-106)
[2025-09-03] MEDS: AZITHROMYCIN 500MG/ 250ML 250 ML IV SCH (09:46)
--- NOTE | 2025-09-03 18:09 | DVHPN2 ---
Subjective Doing well in bed Reviewed: H&P Changes from previous H/P or p: No Changes Objective Vitals Vital Signs Date Time Temp Pulse Resp B/P (MAP) Pulse Ox O2 Delivery O2 Flow Rate FiO2 09/03/25 17:34 98.5 113 18 164/89 (114) 93 98.5 09/03/25 14:14 Room Air 0.0 09/03/25 08:00 40 40 Intake/Output Intake and Output 09/03/25 05:00 Intake Total 1840 ml Output Total 400 ml Balance 1440 ml Intake Oral 1440 ml IV Total 400 ml Output Urine Total 400 ml # Voids 13 # Bowel Movements 2 General Appearance: Alert, Oriented X3 HEENT: Atraumatic Cardiovascular: Regular rate, Normal S1, Normal S2 Abdomen: Normal bowel sounds Musculoskeletal: Other (LE edema) Medications Current Medications Medications Dose Ordered Sig/Isela Route Start Time Stop Time Status Last Admin Dose Admin Sodium Chloride 10 ml Q8HR IV 09/02/25 14:00 09/03/25 13:09 10 ML Acetaminophen/ Hydrocodone Bitart 1 tab Q4HP PRN PO 09/02/25 10:45 09/03/25 16:39 1 TAB Enoxaparin Sodium 60 mg BID SC 09/02/25 22:00 09/03/25 09:26 60 MG Acetaminophen 650 mg Q6HP PRN PO 09/02/25 10:45 Nitroglycerin 0.4 mg Q5MINP PRN SL 09/02/25 10:45 Morphine Sulfate 2 mg Q30M PRN IV 09/02/25 10:45 Ceftriaxone Sodium 50 ml @ 100 mls/hr DAILY IV 09/02/25 10:45 09/03/25 09:26 100 MLS/HR Azithromycin 250 ml @ 125 mls/hr DAILY IV 09/02/25 10:45 Cancel Azithromycin 250 ml @ 125 mls/hr DAILY IV 09/03/25 10:00 09/03/25 09:46 125 MLS/HR Guaifenesin/ Dextromethorphan 10 ml Q4HP PRN PO 09/02/25 11:00 09/02/25 20:05 10 ML Hydralazine HCl 10 mg Q8HP IV 09/02/25 14:00 09/03/25 05:14 10 MG Furosemide 40 mg DAILY IV 09/02/25 15:45 09/03/25 09:26 40 MG Laboratory Results Laboratory Tests 09/03/25 05:25 Chemistry Test 09/03/25 05:25 Albumin 4.1 g/dL (3.2-4.8) Calcium Level 9.3 mg/dL (8.7-10.4) Total Protein 7.7 g/dL (5.7-8.2) LFT Test 09/03/25 05:25 Alanine Aminotransferase (ALT) 18 U/L (7-40) Alkaline Phosphatase 128 U/L (46-116) H Aspartate Amino Transferase (AST) 14 U/L (13-40) Total Bilirubin 0.5 mg/dL (0.2-1.0) Urinalysis Test 09/02/25 08:30 Urine Color Light-yellow (Yellow) Urine Clarity Clear (Clear) Urine pH 5.5 (5.0-9.0) Urine Specific [place] 1.003 (1.001-1.035) Urine Protein Negative (Negative) Urine Ketones Negative (Negative) Urine Blood Negative /uL (Negative) Urine Nitrite Negative (Negative) Urine Bilirubin Negative (Negative) Urine Urobilinogen Normal mg/dL (Negative) Urine Leukocyte Esterase Negative /uL (Negative) Urine RBC None seen /hpf (0 - 3) Urine Microscopic WBC 1 /HPF (0-3) Urine Squamous Epithelial Cells None seen /hpf (<5) Urine Bacteria None seen /hpf (None Seen) Urine Glucose Normal mg/dL (Normal) Assessment/Plan Assessment/Plan # Acute on chronic congestive heart failure exacerbation # HFpEF - Admit to hospital for management of acute heart failure exacerbation - ordered echocardiogram - continue Lasix 40 mg IV daily - cardiology consult if needed # Possible Gram-positive/negative bacterial pneumonia - CXR shows: Increased interstitial prominence - Evaluate and treat early pneumonia - continue antibiotics IV Rocephin and IV azithromycin # Hypertension - monitor blood pressure - antihypertensive medication # Arthritis - Continue [place] PRN # substance uses disorder - UDS shows positive for PCP and amphetamine - counseled patient for quit drug abuse Plan discussed with: Patient Date of Service: Sep 03, 2025 Billing Provider: EDWIGE MIX MD Common Visit Codes: [id number] INP/OBS CARE(HIGH) EDWIGE MIX MD Sep 03, 2025 18:09
[2025-09-04 01:00] VITALS: BP 136/67; PULSE 130; RESP 16; TEMP 98.9; O2SAT 99
[2025-09-04 02:10] VITALS: PULSE 89; O2SAT 99
[2025-09-04 05:00] VITALS: BP 129/80; PULSE 91; RESP 20; TEMP 98.7; O2SAT 100
--- NOTE | 2025-09-04 12:18 | DVHDS2 ---
Discharge Summary Date of Admission Sep 02, 2025 at 10:32 Date of Discharge: Sep 04, 2025 Labs/Diagnostic Data: Laboratory Results Test 09/03/25 05:25 09/02/25 11:03 09/02/25 08:30 09/02/25 08:15 White Blood Count 24.9 10^3/uL (4.4-10.8) Red Blood Count 4.93 10^6/uL (4.5-5.90) Hemoglobin 12.7 g/dL (13.5-17.5) Hematocrit 39.5 % (41.0-53.0) Mean Corpuscular Volume 80.1 fL (80.0-100.0) Mean Corpuscular Hemoglobin 25.8 pg (28.0-32.0) Mean Corpuscular Hemoglobin Concent 32.2 g/dL (32.0-36.0) Red Cell Distribution Width 17.2 % (11.8-14.3) Platelet Count 202 10^3/uL (140-450) Mean Platelet Volume 10.8 fL (6.9-10.8) Neutrophils (%) (Auto) 90.6 % (37.0-80.0) Lymphocytes (%) (Auto) 4.9 % (10.0-50.0) Monocytes (%) (Auto) 4.4 % (0.0-12.0) Eosinophils (%) (Auto) 0.0 % (0.0-7.0) Basophils (%) (Auto) 0.1 % (0.0-2.0) Neutrophils # (Auto) 22.5 10 ^3/uL (1.6-8.6) Lymphocytes # (Auto) 1.2 10 ^3/uL (0.4-5.4) Monocytes # (Auto) 1.1 10 ^3/uL (0-1.3) Eosinophils # (Auto) 0 10 ^3/uL (0-0.8) Basophils # (Auto) 0 10 ^3/uL (0-0.2) Nucleated Red Blood Cells 0.0 % Sodium Level 140 mmol/L (136-145) Potassium Level 4.3 mmol/L (3.5-5.1) Chloride Level 102 mmol/L (98-107) Carbon Dioxide Level 30 mmol/L (20-31) Anion Gap 8 (5-15) Blood Urea Nitrogen 17 mg/dL (9-23) Creatinine 1.11 mg/dL (0.700-1.30) Glomerular Filtration Rate Calc 81 mL/min (>90) BUN/Creatinine Ratio 15.3 (10.0-20.0) Serum Glucose 193 mg/dL (74-106) Calcium Level 9.3 mg/dL (8.7-10.4) Total Bilirubin 0.5 mg/dL (0.2-1.0) Aspartate Amino Transferase (AST) 14 U/L (13-40) Alanine Aminotransferase (ALT) 18 U/L (7-40) Alkaline Phosphatase 128 U/L (46-116) Total Protein 7.7 g/dL (5.7-8.2) Albumin 4.1 g/dL (3.2-4.8) Troponin I High Sensitivity 15 ng/L (</=54) Urine Color Light-yellow (Yellow) Urine Clarity Clear (Clear) Urine pH 5.5 (5.0-9.0) Urine Specific [place] 1.003 (1.001-1.035) Urine Protein Negative (Negative) Urine Ketones Negative (Negative) Urine Blood Negative /uL (Negative) Urine Nitrite Negative (Negative) Urine Bilirubin Negative (Negative) Urine Urobilinogen Normal mg/dL (Negative) Urine Leukocyte Esterase Negative /uL (Negative) Urine RBC None seen /hpf (0 - 3) Urine Microscopic WBC 1 /HPF (0-3) Urine Squamous Epithelial Cells None seen /hpf (<5) Urine Bacteria None seen /hpf (None Seen) Urine Glucose Normal mg/dL (Normal) Urine Opiates Screen Neg (NEGATIVE) Urine Fentanyl Screen Neg (NEGATIVE) Urine Barbiturates Screen Neg (NEGATIVE) Urine Phencyclidine Screen Pos (NEGATIVE) Urine Amphetamines Screen Pos (NEGATIVE) Urine Benzodiazepines Screen Neg (NEGATIVE) Urine Cocaine Screen Neg (NEGATIVE) Urine Cannabinoids Screen Neg (NEGATIVE) B-Type Natriuretic Peptide 30.71 pg/mL (0-100) Other Laboratory Tests 09/03/25 05:25 Brief Hx & Hospital Course: 50 y.o male with PMHx of CHF, HTN and osteoarthritis, presents to the ED for a chief complaint of SOB that started this morning. Patient mentions running out of his Lasix 2 days ago and presents with lower extremity swelling. The patient's 4 months ago from a stroke, and he reports going through a lot emotionally because of this loss. He mentions starting a job about a week ago but moved out again. 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 Regarding other medical conditions, the patient has hypertension and arthritis affecting his knees and back. He takes [place] for pain management. The patient reports medication non-adherence, having run out of his heart failure medication yesterday, which he attributes to his current symptom exacerbation. Treated for HF Left AMA Condition at Discharge: Good Final Diagnosis/Problems List # Acute on chronic congestive heart failure exacerbation # HFpEF # Possible Gram-positive/negative bacterial pneumonia # Hypertension # Arthritis # substance uses disorder Discharge Disposition: AMA Discharge Instruct/Medications Scheduled Furosemide (Lasix), 40 MG PO BID, (Reported) Hydrocodone-Acetaminophen ([place] 10-325 mg), 1 TAB PO BID, (Reported) Lisinopril (Lisinopril), 1 TAB PO DAILY, (Reported) Discharge Statement: "Patient was advised to return to the ER or call 911 if any headaches, dizziness, shortness of breath, chest pain, abdominal pain, bleeding, fevers, or worsening of medical condition. Patient was counseled about treatment plan, medications, possible side effects, patientverbalized understanding. All questions were answered to the best of my ability. This discharge took greater then 30 minutes in planning, reviewing documentation, counseling the patient, and discussing with other team members." ASSESSMENT ASSESSMENT Assessment Date of Service: Sep 04, 2025 Billing Provider: EDWIGE MIX MD Common Visit Codes: 25819-BUV/OBS DISCH DAY >30min EDWIGE MIX MD Sep 04, 2025 12:18
== END 2025-09-04 07:18 | disposition left against medical advice (07) | DRG 194 ==
LOC: ER 06:08 → OVERFLOW 10:32 → TELE-CENTR 12:06
PROVIDERS: ADMIT Hospitalist; ATTEND Hospitalist
PROC: 5A09357 Assistance with Respiratory Ventilation, Less than 24 Consecutive Hours, Continuous Positive Airway Pressure (ICD-10-PCS; principal; 2025-09-02)
PROC: 5A09357 Assistance with Respiratory Ventilation, Less than 24 Consecutive Hours, Continuous Positive Airway Pressure (ICD-10-PCS; 2025-09-03)
DX: I11.0 Hypertensive heart disease with heart failure (principal); J15.69 Pneumonia due to other Gram-negative bacteria; J44.0 Chronic obstructive pulmonary disease with (acute) lower respiratory infection; Z68.45 Body mass index [BMI] 70 or greater, adult; E11.9 Type 2 diabetes mellitus without complications; I16.0 Hypertensive urgency; E66.01 Morbid (severe) obesity due to excess calories; R65.10 Systemic inflammatory response syndrome (SIRS) of non-infectious origin without acute organ dysfunction; I50.33 Acute on chronic diastolic (congestive) heart failure; F19.10 Other psychoactive substance abuse, uncomplicated; Z91.148 Patient's other noncompliance with medication regimen for other reason; Z53.29 Procedure and treatment not carried out because of patient's decision for other reasons; F17.210 Nicotine dependence, cigarettes, uncomplicated; Z63.4 Disappearance and death of family member; F15.19 Other stimulant abuse with unspecified stimulant-induced disorder; Z79.899 Other long term (current) drug therapy
CPT/HCPCS: 36415; 71045; 80048; 80053; 80307; 81001; 83880; 84484; 85025; 93306; 94640; 94660; 96374; 96375; 99291; 99292; G0378; J2543